=== PATIENT | female | born 1945 | race Caucasian/White ===

== ENCOUNTER 2024-05-03 15:48 | Emergency (ER) | payer OTHER ==
[~2024-05-03] VITALS: Ht 162.6 cm; Wt 71.0 kg
[2024-05-03 15:54] VITALS: O2SAT 97
[2024-05-03] MEDS ORDERED: ACETAMINOPHEN 325MG TABLET PO ONE (17:00)
[2024-05-03] MEDS ORDERED: ONDANSETRON 4MG ODT PO ONE (17:00)
[2024-05-03] MEDS ORDERED: METH-653 MT (18:07)
[2024-05-03] MEDS ORDERED: TOPUD MT (18:07)
[2024-05-03] MEDS: ACETAMINOPHEN 325MG TABLET PO NR (18:41)
[2024-05-03] MEDS: ONDANSETRON 4MG ODT PO NR (18:42)
[2024-05-03 18:45] VITALS: BP 133/70; PULSE 90; RESP 18; TEMP 36.72516; O2SAT 97
== END 2024-05-03 19:05 | disposition home or self-care (01) ==
LOC: ER 15:48
DX: S13.4XXA Sprain of ligaments of cervical spine, initial encounter (principal); M54.2 Cervicalgia; E11.9 Type 2 diabetes mellitus without complications; V49.49XA Driver injured in collision with other motor vehicles in traffic accident, initial encounter; Y93.89 Activity, other specified; Y92.89 Other specified places as the place of occurrence of the external cause; Y99.8 Other external cause status
CPT/HCPCS: 99284